=== PATIENT | female | born 1990 | race Caucasian/White ===

== ENCOUNTER 2020-03-08 16:44 | Emergency (ER) | payer OTHER ==
[~2020-03-08 16:44] MED LIST: AUGMENTIN 875-1 EACH PO; CEFUROXIME500 MG PO; IBUPROFEN600 MG PO; NAPROSYN500 MG PO; NORCO 5-325 TA1 EACH PO
== END 2020-03-08 18:10 | disposition home or self-care (01) ==
LOC: ER1 16:44
DX: I10 Essential (primary) hypertension (principal); Z88.8 Allergy status to other drugs, medicaments and biological substances
CPT/HCPCS: 81001; 84703; 99283

== ENCOUNTER 2020-03-12 13:35 | Emergency (ER) | payer OTHER ==
[2020-03-12 17:33] LABS: HEMOGLOBIN 14.6 gm/dl (12.3-15.3); RED BLOOD COUNT 4.88 M/UL (4.00-5.10); WHITE BLOOD COUNT 7.4 K/UL (4.5-11.0)
[2020-03-12 17:54] LABS: BUN/CREATININE RATIO 17 (0-10)
== END 2020-03-12 19:13 | disposition home or self-care (01) ==
LOC: ER1 13:35
PROVIDERS: Physician Assistant Medical
DX: O20.9 Hemorrhage in early pregnancy, unspecified (principal); O99.891 Other specified diseases and conditions complicating pregnancy; R10.9 Unspecified abdominal pain; Z3A.00 Weeks of gestation of pregnancy not specified; Z88.8 Allergy status to other drugs, medicaments and biological substances
CPT/HCPCS: 80053; 81001; 84702; 84703; 85025; 99284

== ENCOUNTER 2020-06-18 12:27 | Emergency (ER) | payer OTHER ==
[2020-06-18 15:26] LABS: HEMOGLOBIN 14.3 gm/dl (12.3-15.3); RED BLOOD COUNT 4.68 M/UL (4.00-5.10)
[2020-06-18 16:05] LABS: BUN/CREATININE RATIO 9 (0-10)
== END 2020-06-18 17:52 | disposition home or self-care (01) ==
LOC: ER1 12:27
PROVIDERS: Emergency Medicine
DX: O02.1 Missed abortion (principal); Z3A.01 Less than 8 weeks gestation of pregnancy; Z88.8 Allergy status to other drugs, medicaments and biological substances
CPT/HCPCS: 76817; 80053; 84702; 85025; 85610; 85730; 86850; 86900; 86901; 99284; J2790

== ENCOUNTER → 2020-06-22 | Outpatient (CLI) | payer OTHER ==
[~2020-06-22] MED LIST changes: +CELEXA10 MG PO; +COLACE100 MG PO; +IBUPROFEN800 MG PO; +PERCOCET 5/325 T1 EA PO
== END ==
LOC: LAB 14:18
DX: O20.0 Threatened abortion (principal)
CPT/HCPCS: 36415; 84702

== ENCOUNTER → 2020-06-25 | Outpatient (CLI) | payer OTHER | LOC: LAB 16:09 | DX: N91.2 Amenorrhea, unspecified (principal) | CPT/HCPCS: 84702 ==

== ENCOUNTER → 2020-06-26 | Outpatient (CLI) | payer OTHER ==
[~2020-06-26] VITALS: Ht 154.9 cm; Wt 74.8 kg
[2020-06-26 12:30] LABS: RED BLOOD COUNT 4.52 M/UL (4.00-5.10); WHITE BLOOD COUNT 6.2 K/UL (4.5-11.0)
[2020-06-26 12:56] LABS: BUN/CREATININE RATIO 14 (0-10)
== END ==
LOC: OPSV 11:40
PROVIDERS: Obstetrics & Gynecology
DX: O00.90 Unspecified ectopic pregnancy without intrauterine pregnancy (principal)
CPT/HCPCS: 80053; 84702; 85027; 96372; J9250

== ENCOUNTER 2020-06-27 00:26 | Emergency (ER) | payer OTHER ==
[~2020-06-27 00:26] MED LIST changes: -CELEXA10 MG PO; -COLACE100 MG PO; -IBUPROFEN800 MG PO; -PERCOCET 5/325 T1 EA PO
[2020-06-27 02:57] LABS: HEMOGLOBIN 13.1 gm/dl (12.3-15.3); RED BLOOD COUNT 4.27 M/UL (4.00-5.10)
[2020-06-27 02:59] LABS: WHITE BLOOD COUNT 7.8 K/UL (4.5-11.0)
[2020-06-27 03:50] LABS: BUN/CREATININE RATIO 11 (0-10)
== END 2020-06-27 04:22 | disposition home or self-care (01) ==
LOC: ER1 00:26
PROVIDERS: Family Medicine
DX: O00.90 Unspecified ectopic pregnancy without intrauterine pregnancy (principal); Z88.8 Allergy status to other drugs, medicaments and biological substances; Z79.01 Long term (current) use of anticoagulants
CPT/HCPCS: 80053; 84702; 85025; 86900; 86901; 99284; Q9967

== ENCOUNTER → 2020-06-29 | Outpatient (CLI) | payer OTHER ==
[~2020-06-29] MED LIST changes: +CELEXA10 MG PO; +COLACE100 MG PO; +IBUPROFEN800 MG PO; +PERCOCET 5/325 T1 EA PO
== END ==
LOC: LAB 09:50
DX: O00.90 Unspecified ectopic pregnancy without intrauterine pregnancy (principal)
CPT/HCPCS: 36415; 84702

== ENCOUNTER 2020-07-01 20:26 | Observation (INO) | payer OTHER ==
[~2020-07-01] VITALS: Ht 154.9 cm; Wt 74.8 kg
[~2020-07-01 20:26] MED LIST changes: -CELEXA10 MG PO; -COLACE100 MG PO; -IBUPROFEN800 MG PO; -PERCOCET 5/325 T1 EA PO
[2020-07-01 22:26] LABS: HEMOGLOBIN 12.9 gm/dl (12.3-15.3); RED BLOOD COUNT 4.23 M/UL (4.00-5.10); WHITE BLOOD COUNT 9.6 K/UL (4.5-11.0)
[2020-07-01 22:43] LABS: BUN/CREATININE RATIO 14 (0-10)
[2020-07-02] MEDS ORDERED: PERCOCET 5/325 T1 EA PO (07:47)
[2020-07-02] MEDS ORDERED: IBUPROFEN800 MG PO (07:47)
[2020-07-02] MEDS ORDERED: COLACE100 MG PO (07:47)
[2020-07-02] MEDS ORDERED: CELEXA10 MG PO (08:24)
== END 2020-07-02 14:00 | disposition home or self-care (01) ==
LOC: ER1 20:26 → CDU 07-02 00:11 → M/S 07-02 03:02
PROVIDERS: Physician Assistant; ADMIT Obstetrics & Gynecology
DX: O00.90 Unspecified ectopic pregnancy without intrauterine pregnancy (principal); O99.341 Other mental disorders complicating pregnancy, first trimester; O26.891 Other specified pregnancy related conditions, first trimester; F41.9 Anxiety disorder, unspecified; K66.1 Hemoperitoneum; Z3A.01 Less than 8 weeks gestation of pregnancy; Z20.822 Contact with and (suspected) exposure to COVID-19
CPT/HCPCS: 76817; 80053; 81001; 84702; 85025; 86900; 86901; 99285; G0378; J0690; J1100; J1885; J2001; J2250; J2270; J2405; J2704; J2710; J3010; J3410; J7030; U0002

== ENCOUNTER → 2020-11-09 | Outpatient (CLI) | payer OTHER ==
[~2020-11-09] MED LIST changes: +CELEXA10 MG PO; +COLACE100 MG PO; +IBUPROFEN800 MG PO; +PERCOCET 5/325 T1 EA PO
== END ==
LOC: LAB 13:31
DX: Z34.90 Encounter for supervision of normal pregnancy, unspecified, unspecified trimester (principal)
CPT/HCPCS: 36415; 84702

== ENCOUNTER → 2020-11-12 | Outpatient (CLI) | payer OTHER ==
[~2020-11-12] VITALS: Ht 154.9 cm; Wt 79.4 kg
[2020-11-12 16:34] LABS: HEMOGLOBIN 13.9 gm/dl (12.3-15.3); RED BLOOD COUNT 4.5 M/UL (4.00-5.10); WHITE BLOOD COUNT 7.4 K/UL (4.5-11.0)
== END ==
LOC: OPSV 15:42
PROVIDERS: Obstetrics & Gynecology
DX: O00.90 Unspecified ectopic pregnancy without intrauterine pregnancy (principal)
CPT/HCPCS: 36415; 82565; 84450; 84460; 85027; 86850; 86900; 86901; 96372; J9250

== ENCOUNTER → 2020-11-12 | Outpatient (CLI) | payer OTHER | LOC: LAB 10:16 | DX: Z32.00 Encounter for pregnancy test, result unknown (principal) | CPT/HCPCS: 36415; 84702 ==

== ENCOUNTER → 2020-11-15 | Outpatient (CLI) | payer OTHER | LOC: LAB 13:52 | DX: Z32.00 Encounter for pregnancy test, result unknown (principal) | CPT/HCPCS: 36415; 84702 ==

== ENCOUNTER → 2020-11-18 | Outpatient (CLI) | payer OTHER | LOC: LAB 14:30 | DX: Z32.00 Encounter for pregnancy test, result unknown (principal) | CPT/HCPCS: 36415; 84702 ==

== ENCOUNTER 2021-01-07 17:29 | Emergency (ER) | payer OTHER ==
[2021-01-07 20:58] LABS: HEMOGLOBIN 14.1 gm/dl (12.3-15.3); RED BLOOD COUNT 4.55 M/UL (4.00-5.10); WHITE BLOOD COUNT 12.3 K/UL (4.5-11.0)
[2021-01-07 21:19] LABS: BUN/CREATININE RATIO 17 (0-10)
[2021-01-07] MEDS ORDERED: IBUPROFEN600 MG PO (22:31)
[2021-01-07] MEDS ORDERED: CYCLOBENZAPRINE10 MG PO (22:31)
== END 2021-01-07 22:45 | disposition home or self-care (01) ==
LOC: ER1 17:29
PROVIDERS: Physician Assistant
DX: M54.50 Low back pain, unspecified (principal); M25.512 Pain in left shoulder; M25.562 Pain in left knee; R10.817 Generalized abdominal tenderness; F17.290 Nicotine dependence, other tobacco product, uncomplicated; Z88.8 Allergy status to other drugs, medicaments and biological substances; V49.50XA Passenger injured in collision with unspecified motor vehicles in traffic accident, initial encounter; Y92.410 Unspecified street and highway as the place of occurrence of the external cause
CPT/HCPCS: 71045; 72125; 72128; 72131; 73030; 73564; 80053; 81001; 83690; 84703; 85025; 87086; 90471; 90715; 96374; 96375; 99284; J1885; J2405; Q9967

== ENCOUNTER → 2021-01-17 | Outpatient (CLI) | payer OTHER ==
[~2021-01-17] MED LIST changes: +CYCLOBENZAPRINE10 MG PO
== END ==
LOC: LAB 09:12
DX: N91.2 Amenorrhea, unspecified (principal)
CPT/HCPCS: 36415; 84702

== ENCOUNTER → 2021-10-22 | Outpatient (CLI) | payer OTHER | LOC: MRI 08:04 | DX: E22.1 Hyperprolactinemia (principal); R90.82 White matter disease, unspecified | CPT/HCPCS: 70553; A9577 ==